=== PATIENT | female | born 1995 | race Caucasian/White ===

== ENCOUNTER 2017-08-20 17:12 | Emergency (ER) | payer OTHER ==
[~2017-08-20] VITALS: Ht 160 cm; Wt 61.4 kg
[2017-08-20] MEDS ORDERED: VIT D PO (17:19)
[2017-08-20] MEDS ORDERED: BACITRACIN 0.9 GM PACKET OINTMENT TP ONE (19:00)
[2017-08-20 19:33] VITALS: BP 137/81
== END 2017-08-20 19:33 | disposition home or self-care (01) ==
LOC: EMS 17:19
DX: T23.401A Corrosion of unspecified degree of right hand, unspecified site, initial encounter (principal); T23.402A Corrosion of unspecified degree of left hand, unspecified site, initial encounter; Y93.89 Activity, other specified; Y92.89 Other specified places as the place of occurrence of the external cause; Y99.8 Other external cause status
CPT/HCPCS: 16000; 99283; 99284